=== PATIENT | male | born 1945 | race Caucasian/White ===

== ENCOUNTER → 2016-05-22 | Day surgery (SDC) | payer OTHER ==
[~2016-05-22] MED LIST: BUPIVACAINE/EPINEPHRINE 0.25% 50 ML VIAL ONE; KETOROLAC TROMETHAMINE 30 MG/ML (IVP) VIAL IV PUSH ONE; LACTATED RINGER'S 1000 ML INJ 1,000 ML ONE; ONDANSETRON HCL 4 MG/2 ML VIAL IV PUSH ONE; PROPOFOL 200 MG/20 ML AMP IV ONE; ceFAZolin 2 GM PREMIX 50 ML ONE
--- NOTE | 2016-05-24 05:25 | TN ---
cc: GORGE CLEMONS DATE OF SURGERY 05/22/2016 PREOPERATIVE DIAGNOSIS Bilateral inguinal hernias. POSTOPERATIVE DIAGNOSIS Bilateral indirect inguinal hernias. PROCEDURE Laparoscopic bilateral inguinal hernia repair with mesh (TEP). ATTENDING SURGEON MD Jn [employer] JOURNEYMAN Geraldine DOWELL ANESTHESIA General and local anesthetic. BLOOD LOSS Less than 10 cc COMPLICATIONS None. FINDINGS 1. Fat incarcerated small right indirect inguinal hernia. 2. Spontaneously reduced indirect inguinal hernia with a moderate-sized hernia sac communicating with the intraperitoneal cavity consistent with bowel-containing hernia. INDICATIONS FOR PROCEDURE The patient is a 71-year-old male who developed several weeks of increasing pain in his left groin while playing tennis and performing other exercise. The patient was noted have a small bulge on exam by his primary care physician and was referred by General Surgery for evaluation of possible hernia. Upon physical exam the patient was found to have bilateral inguinal hernias of which the left was more symptomatic. Discussed with the patient about the risks, benefits and alternatives to bilateral laparoscopic inguinal hernia repair. TEP type approach was discussed in detail with the patient and he agreed to undergo the procedure. OF NOTE Geraldine Girard Nurse Practitioner was required for assistance with this procedure due to her trained expertise as a general surgery store assistant and, due to the complexity of the procedure, her presence was required for this case, for the safe, timely and accurate care of this patient. PROCEDURE After informed consent was obtained, the patient was taken to the operating room, placed in a supine position with the patient under general anesthesia. The patient's abdomen was shaved, prepped and draped in a sterile fashion. A time-out was performed. The abdomen was entered, the preperitoneal space entered under direct entry just to the right of the umbilicus. We made use of local anesthetic at the skin and subcutaneous tissue and made a small 2-cm incision to the right of the umbilicus with the 11 blade scalpel. We dissected through the subcutaneous tissue and opened the anterior rectus sheath and spread the rectus muscles laterally. We were then able to dissect the exterior to the posterior rectus sheath, behind rectus muscles and get into the extraperitoneal space. The balloon dissector was placed and I dissected the space with the balloon dissector without difficulty. This was then removed and a balloon trocar was placed into the TEP space and insufflation exposed the preperitoneal space quite well. We placed two 5-mm ports under direct visualization at the midline of the preperitoneal space. We then used two blunt dissectors to continue our dissection, exposing both sides of the preperitoneal space and the hernia sacs. Left hernia sac was encountered. This was an indirect space. It did not contain any viscera but clearly was communicating with the abdominal cavity and this was from the cremasteric fascia and the spermatic cord structures and reduced completely back into the abdomen. We then were able to dissect the cremasteric muscles and preserve the vascular and spermatic cord structures, entering the small indirect defect. There was no direct or femoral defect noted. At this point in time we turned our attention to the right side. We dissected this in similar fashion, however, the hernia was more chronic, containing hernia and a small indirect space was clearly visible. Once we had completely reduced all the preperitoneal fat from the indirect space, we had good dissection of the cord structures on the right as well. We measured this area and cut two 3-inch x 6-inch polypropylene atrium lightweight mesh patches and placed them into the preperitoneal space. We tacked these in place with three tacks each, completely covering our defects and overlapping in the middle of the pubis bone. This was in taco shell technique at the inferior edge. At this point time we injected some local anesthetic and slowly removed insufflation, made sure the mesh remained in good anatomic position. We had an excellent technical result. All ports were removed and we turned our attention towards closure. We closed the anterior rectus sheath with a [id number] Vicryl suture. We closed the skin with 4-0 Monocryl and Dermabond. We ensured that the patient's testicles and scrotum were in normal anatomic position. Ice pack and scrotal support was applied. The patient was taken from the to the recovery room after anesthesia in stable condition. The patient tolerated the procedure well. No apparent complications. All counts were correct and I was present and scrubbed for the entire procedure. MD ANISHA Gibson/ASHANTI /8:38 PM /5:03 AM
== END | disposition home or self-care (01) ==
LOC: ESDC 08:02
PROVIDERS: ATTEND Surgery
DX: K40.20 Bilateral inguinal hernia, without obstruction or gangrene, not specified as recurrent (principal)
CPT/HCPCS: 00840; 49650; C1727; C1781; J0690; J1885; J2405; J3010; J7120